=== PATIENT | male | born 1960 | race Caucasian/White ===

== ENCOUNTER → 2022-12-11 | Outpatient (CLI) | payer OTHER | END | disposition home or self-care (01) | LOC: RADPETMAIN 07:59 | PROVIDERS: ATTEND Urology | DX: Z53.9 Procedure and treatment not carried out, unspecified reason (principal) ==

== ENCOUNTER → 2022-12-18 | Outpatient (CLI) | payer OTHER ==
--- NOTE | 2022-12-18 14:09 | PE ---
EXAMINATION TYPE: PET CT fusion skull to thigh DATE OF EXAM: 12/18/2022 CLINICAL INDICATION:Male, 62 years old with history of R97.21; TECHNIQUE: Following the intravenous administration of 5.4 mCi of Ga-68 Illuccix (PSMA), whole body images are performed from the skull base to the midthigh. Images are reviewed on the computer in th e coronal, axial, and sagittal planes. Reconstructed rotating images are created on independent work station and reviewed on the computer. A non-contrast CT is performed in conjunction with the PET sc an. COMPARISON: CT None, PET/CT None, FINDINGS: Mediastinal SUV mean is 0.7. Hepatic parenchyma SUV mean is 3.7. SKULL BASE AND NECK: No suspicious radiotracer activity. CHEST, MEDIASTINUM, AND HILAR REGION: No suspicious radiotracer activity. ABDOMEN AND PELVIS: There is some artifact extending through the posterior bladder which limits evalu ation. No suspicious radiotracer activity. OSSEOUS STRUCTURES: No suspicious radiotracer activity. OTHER CT: Atherosclerosis of the arterial vasculature. Including the intracranial vasculature and the coronary arteries. Fat-containing umbilical hernia. Few scattered colonic diverticula. Prostate glan d appears surgically absent. IMPRESSION: Post prostatectomy, No suspicious radiotracer activity. There is limited evaluation of the posterior aspect of the bladder due to artifact. No suspicious lymph nodes. No osseous lesions visualized.
== END | disposition home or self-care (01) ==
LOC: RADPETMAIN 08:50
PROVIDERS: ATTEND Urology
DX: C61 Malignant neoplasm of prostate (principal); R97.21 Rising PSA following treatment for malignant neoplasm of prostate
CPT/HCPCS: 78815; A9596

== ENCOUNTER → 2023-07-23 | Outpatient (CLI) | payer OTHER ==
--- NOTE | 2023-07-26 15:12 | PE ---
EXAMINATION TYPE: PET CT fusion skull to thigh DATE OF EXAM: 07/23/2023 COMPARISON: No recent pertinent CT Prior PET/CT: 12/18/2022 HISTORY: Prostate cancer TECHNIQUE: Following the intravenous administration of 6.51 mCi gallium 28, whole body images are pe rformed from the skull base to the midthigh. Images are reviewed on the computer in the coronal, axi al, and sagittal planes. Reconstructed rotating images are created on independent workstation and re viewed on the computer. A localization and attenuation correction CT is performed in conjunction wi th the PET scan. DLP: 967.05 mGycm SCAN: Subsequent FINDINGS: NECK: No abnormal uptake THORAX: No abnormal uptake ABDOMEN: No abnormal uptake PELVIS: No abnormal uptake OSSEOUS STRUCTURES: No abnormal uptake LOCALIZATION CT: Cholelithiasis present. COMPARISON: No suspicious interval changes IMPRESSION: 1. No suspicious uptake to suggest recurrent or metastatic prostate neoplasm.
== END | disposition home or self-care (01) ==
LOC: RADPETMAIN 07:56
PROVIDERS: ATTEND Urology
DX: C61 Malignant neoplasm of prostate (principal); R97.21 Rising PSA following treatment for malignant neoplasm of prostate
CPT/HCPCS: 78815; A9596